=== PATIENT | female | born 1985 | race Caucasian/White ===

== ENCOUNTER 2016-08-07 23:40 | Emergency (ER) | payer SELFPAY ==
--- NOTE | 2016-08-07 23:48 | EDPHY ---
H & P HPI/ROS: HPI CHIEF COMPLAINT: Shortness of breath HISTORY OF PRESENT ILLNESS: This patient very pleasant 22-year-old female significant past medical history for thyroid disease, presents to the emergency room by EMS after she was sitting down eating dinner with her and having spicy soup and tortilla. She tells me they are very hot peppers in the spicy soup and all the sudden she had an episode of reflux with this burning discomfort all the way from her epigastric up into her posterior pharynx and up into her no she felt an intense burning sensation. She tells me felt like severe reflux it then resolved however she feels like she still having trouble swallowing. She denies chest pain or shortness of breath. She states it feels like her throat is inflamed. Denies wheezing, cough, vomiting, trouble swallowing but does have pain. Past Medical History: Thyroid disease Past Surgical History: Gallbladder removal Social History: Denies daily use of drugs alcohol tobacco products Family History: Noncontributory ROS REVIEW OF SYSTEMS: A comprehensive 10 point review of systems is otherwise negative aside from elements mentioned in the history of present illness. Exam Constitutional triage nursing summary reviewed, vital signs reviewed, awake/ alert. Eyes normal conjunctivae and sclera, EOMI, PERRLA. HENT posterior pharynx is normal on exam, no stridor, normal inspection, atraumatic, moist mucus membranes, no epistaxis, neck supple/ no meningismus, no raccoon eyes. Respiratory clear to auscultation bilaterally, normal breath sounds, no respiratory distress, no wheezing. Cardiovascular rate normal, regular rhythm, no murmur, no edema, distal pulses normal. Gastrointestinal soft, non-tender, no rebound, no guarding, normal bowel sounds, no distension, no pulsatile mass. Genitourinary no CVA tenderness. Musculoskeletal no midline vertebral tenderness, full range of motion, no calf swelling, no tenderness of extremities, no meningismus, good pulses, neurovascularly intact. Skin pink, warm, & dry, no rash, skin atraumatic. Neurologic awake, alert and oriented x 3, AAOx3, moves all 4 extremities equally, motor intact, sensory intact, CN II-XII intact, normal cerebellar, normal vision, normal speech. Psychiatric normal mood/affect. Heme/Lymph/Immune no lymphadenopathy. Differential Diagnosis: Includes but is not limited to in a particular order: GERD, esophageal spasm, esophagitis, pain after reflux, reactive inflammation of burn Medical Decision Making: Patient be given a GI cocktail and Pepcid to see if this improves her symptoms. Re-evaluation: 0256: re-examination at this time this patient is resting comfortably. She feels much better after GI cocktail and Pepcid. She tells me the burning sensation in her throat and esophagus has resolved. She is requesting discharge. She understands if she develops any worsening symptoms includes chest pain, shortness of breath trouble swallowing trouble breathing to return emergency room. I will place her on Zantac for 2 weeks. Return if any worsening symptoms she understands. Source: Patient, EMS - Personal History Tetanus Vaccine Date: 2010 Constitutional: Initial Vital Signs Temperature (C) 36.7 C 08/07/16 23:45 Heart Rate 102 H 08/07/16 23:45 Respiratory Rate 20 08/07/16 23:45 Blood Pressure 138/91 H 08/07/16 23:45 O2 Sat (%) 97 08/07/16 23:45 O2 Delivery Mode Room Air Allergies/Adverse Reactions: No Known Allergies Allergy (Unverified 09/20/09 04:39) Home Medications: Medication Instructions Recorded Hydrocodone Bit/Acetaminophen 1 tab PO Q6 PRN 02/16/12 [Vicodin 5/500] Levothyroxine [Synthroid 175 mcg 175 mcg PO DAILY06 02/16/12 (RX)] Nitrofurantoin Macrocrystal 100 mg PO Q6 02/16/12 [Macrodantin 100 mg (RX)] Pharmacy Completed 02/16/12 02/16/12 Ranitidine HCl [Zantac] 150 mg PO DAILY #14 tablet 08/08/16 Medical Decision Making - Data Points Medications Given: Discontinued Medications Famotidine (Pepcid) 20 mg IVP EDNOW ONE Stop: 08/07/16 23:57 Last Admin: 08/08/16 00:03 Dose: 20 mg Miscellaneous Medication (Gi Cocktail) 55 ml PO EDNOW ONE Stop: 08/07/16 23:57 Last Admin: 08/07/16 23:59 Dose: 55 ml Departure - Departure Disposition: Home, Routine, Self-Care Clinical Impression: GERD (gastroesophageal reflux disease) Qualifiers: Esophagitis presence: with esophagitis Qualified Code(s): K21.0 - Gastro- esophageal reflux disease with esophagitis Condition: Good Instructions: Esophageal Spasm (ED), Gastroesophageal Reflux Disease (ED) Additional Instructions: 1. stay well-hydrated drink lots of fluids. 2. do not ingest spicy fatty greasy foods. 3. take Zantac for 2 weeks. 4.Return emergency room if you have worsening symptoms questions or concerns. Referrals: Patient,NotPresent [Unknown] - As per Instructions Prescriptions: Ranitidine HCl [Zantac] 150 mg PO DAILY #14 tablet
[2016-08-07 23:49] VITALS: TEMP 98.1
[2016-08-07] MEDS ORDERED: MAALOX/LIDO/HYOSC GI COCKTAIL 55 ML BOTTLE ONE (23:56)
[2016-08-07] MEDS ORDERED: MAALOX/LIDO/HYOSC GI COCKTAIL 55 ML BOTTLE PO ONE (23:56)
[2016-08-07] MEDS ORDERED: FAMOTIDINE 20 MG/2 ML SDV IVP ONE (23:56)
[2016-08-08 03:08] VITALS: BP 114/74; PULSE 743; RESP 16; O2SAT 95
== END 2016-08-08 03:07 | disposition home or self-care (01) ==
LOC: EDUNIT#
DX: K21.0 Gastro-esophageal reflux disease with esophagitis (principal)
CPT/HCPCS: 96374

== ENCOUNTER 2016-08-08 21:09 | Emergency (ER) | payer SELFPAY ==
[2016-08-08 21:32] VITALS: RESP 18
--- NOTE | 2016-08-08 22:00 | EDPHY ---
H & P Stated Complaint: feels like something in throat and sinus HPI/ROS: HPI CHIEF COMPLAINT: Chest pain, throat pain, shortness of breath HISTORY OF PRESENT ILLNESS: This patient very pleasant 30-year-old female who I saw last night in the emergency room for reflux type symptoms burning in her throat and chest up to her nose. Patient felt better the last night after a GI cocktail, she presents back to the emergency room tonight stating that now she has discomfort in her chest hurts when she takes a deep breath in it also hurts over her sternum when you press there. No trauma. She also tells me that she feels like there is a sensation of something stuck in her throat. She denies nausea, vomiting, hemoptysis, no history of DVT or PE. The pain does not radiate anywhere. She describes the pain as sharp when she takes a deep breath in, also describes the pain as sharp any press on her anterior chest wall. She states also she feels like something stuck in her throat. Denies choking, trouble swallowing, fever, drooling, neck pain or headache. Past Medical History: Thyroid disease Past Surgical History: Gallbladder removal Social History: denies daily use of drugs alcohol tobacco products Family History: Noncontributory ROS REVIEW OF SYSTEMS: A comprehensive 10 point review of systems is otherwise negative aside from elements mentioned in the history of present illness. Exam Constitutional triage nursing summary reviewed, vital signs reviewed, awake/ alert. Eyes normal conjunctivae and sclera, EOMI, PERRLA. HENT normal inspection, atraumatic, moist mucus membranes, no epistaxis, neck supple/ no meningismus, no raccoon eyes. Respiratory clear to auscultation bilaterally, normal breath sounds, no respiratory distress, no wheezing. Cardiovascular chest wall: tender palpation over the sternum, rate normal, regular rhythm, no murmur, no edema, distal pulses normal. Gastrointestinal soft, non-tender, no rebound, no guarding, normal bowel sounds, no distension, no pulsatile mass. Genitourinary no CVA tenderness. Musculoskeletal no midline vertebral tenderness, full range of motion, no calf swelling, no tenderness of extremities, no meningismus, good pulses, neurovascularly intact. Skin pink, warm, & dry, no rash, skin atraumatic. Neurologic awake, alert and oriented x 3, AAOx3, moves all 4 extremities equally, motor intact, sensory intact, CN II-XII intact, normal cerebellar, normal vision, normal speech. Psychiatric normal mood/affect. Heme/Lymph/Immune no lymphadenopathy. Differential diagnosis includes but is not limited to: pulmonary embolism, pneumonia, pleurisy, pneumothorax, musculoskeletal chest wall pain ACS, atypical chest pain, pneumothorax, pneumonia, aortic dissection, congestive heart failure, tumor, musculoskeletal pain, esophageal pain, GERD, peptic ulcer disease, pancreatitis Medical Decision Making: Plan for this patient had an IV established obtain blood work, patient will need an x-ray, EKG, D-dimer and dehydrated. Will try IV Toradol for pain control. We will also perform a x-ray of the neck soft tissue to the prevertebral space. Re-evaluation: EKG interpretation by me on record in [employer] system. Impression time of EKG 2212, this is sinus rhythm rate of 61, there is border will lying Q-wave abnormality in lead to 3 AVF otherwise no acute ischemic changes specifically no ST elevation, ST depression, T-wave abnormalities. No prolonged intervals. ED x-ray chest two view; this shows airway disease. ED x-ray neck soft tissue: negative for foreign body or significant abnormality specifically no prevertebral soft tissue swelling. 1257: re-examination patient is resting comfortably no acute distress. Vital signs reviewed no hypoxia no respiratory distress. Blood work and x-ray has been reviewed an EKG. No acute ischemia change, negative troponin negative D- dimer. Chest shows airway disease I will place her on albuterol inhaler. I do recommend she continue her Zantac as previously prescribed. And return to the ER she develops any worsening symptoms. Also GI referral for possible severe GERD. Patient understands return emergency room if she develops any worsening symptoms includes chest pain, shortness of breath, vomiting, fever. Source: Patient - Personal History LMP (Females 10-55): Now Current Tetanus/Diphtheria Vaccine: Yes Current Tetanus Diphtheria and Acellular Pertussis (TDAP): Yes Tetanus Vaccine Date: 2010 - Medical/Surgical History Hx Asthma: No Hx Chronic Respiratory Disease: No Hx Diabetes: No Hx Cardiac Disease: No Hx Renal Disease: No Hx Cirrhosis: No Hx Alcoholism: No Hx HIV/AIDS: No Hx Splenectomy or Spleen Trauma: No Other PMH: Hyperthyroidism - Social History Smoking Status: Never smoked Constitutional: Initial Vital Signs Temperature (C) 36.7 C 03/09/17 21:27 Heart Rate 69 08/08/16 21:27 Respiratory Rate 18 08/08/16 21:27 Blood Pressure 123/74 H 08/08/16 21:27 O2 Sat (%) 95 08/08/16 21:27 O2 Delivery Mode Room Air Allergies/Adverse Reactions: No Known Allergies Allergy (Unverified 09/20/09 04:39) Home Medications: Medication Instructions Recorded Levothyroxine [Synthroid 175 mcg 175 mcg PO DAILY06 02/16/12 (RX)] Ranitidine HCl [Zantac] 150 mg PO DAILY #14 tablet 08/08/16 Albuterol [Proventil Inhaler HFA 1 - 2 puffs IH Q4H #1 mdi 08/09/16 (*)] Medical Decision Making - Data Points Laboratory Results: Laboratory Results 08/08/16 22:43 08/08/16 22:43 08/08/16 08/08/16 08/08/16 22:43 22:43 22:43 WBC RBC Hgb Hct MCV MCH MCHC RDW Plt Count MPV Neut % (Auto) Lymph % (Auto) [place] % (Auto) Eos % (Auto) Baso % (Auto) Nucleat RBC Rel Count Absolute Neuts (auto) Absolute Lymphs (auto) Absolute Monos (auto) Absolute Eos (auto) Absolute Basos (auto) Absolute Nucleated RBC Immature Gran % Immature Gran # PT 14.0 SEC SEC (12.0-15.0) INR 1.09 (0.83-1.16) APTT 28.8 SEC SEC (23.0-38.0) D-Dimer < 0.27 ug/mLFEU ug/mLFEU (0.00-0.50) Sodium 139 mEq/L mEq/L (134-144) Potassium 3.7 mEq/L mEq/L (3.5-5.2) Chloride 103 mEq/L mEq/L (97-110) Carbon Dioxide 22 mEq/l mEq/l (22-31) Anion Gap 14 mEq/L mEq/L (8-16) BUN 10 mg/dL mg/dL (7-23) Creatinine 0.7 mg/dL mg/dL (0.6-1.0) Estimated GFR > 60 Glucose 85 mg/dL mg/dL (70-100) Calcium 9.4 mg/dL mg/dL (8.5-10.4) Total Bilirubin 0.7 mg/dL mg/dL (0.1-1.4) Conjugated Bilirubin 0.6 mg/dL H mg/dL (0.0-0.5) Unconjugated Bilirubin 0.1 mg/dL mg/dL (0.0-1.1) AST 31 IU/L IU/L (14-46) ALT 42 IU/L IU/L (9-52) Alkaline Phosphatase 82 IU/L IU/L (38-126) Troponin I < 0.012 ng/mL ng/mL (0-0.034) NT-Pro-B Natriuret Pep 21 pg/mL pg/mL (0-125) Total Protein 7.3 g/dL g/dL (6.3-8.2) Albumin 4.2 g/dL g/dL (3.5-5.0) Beta HCG, Qual NEGATIVE 08/08/16 22:43 WBC 9.19 10^3/uL 10^3/uL (3.80-9.50) RBC 4.53 10^6/uL 10^6/uL (4.18-5.33) Hgb 12.9 g/dL g/dL (12.6-16.3) Hct 38.9 % % (38.0-47.0) MCV 85.9 fL fL (81.5-99.8) MCH 28.5 pg pg (27.9-34.1) MCHC 33.2 g/dL g/dL (32.4-36.7) RDW 14.3 % % (11.5-15.2) Plt Count 295 10^3/uL 10^3/uL (150-400) MPV 11.3 fL fL (8.7-11.7) Neut % (Auto) 63.6 % % (39.3-74.2) Lymph % (Auto) 30.5 % % (15.0-45.0) [place] % (Auto) 5.1 % % (4.5-13.0) Eos % (Auto) 0.3 % L % (0.6-7.6) Baso % (Auto) 0.3 % % (0.3-1.7) Nucleat RBC Rel Count 0.0 % % (0.0-0.2) Absolute Neuts (auto) 5.84 10^3/uL 10^3/uL (1.70-6.50) Absolute Lymphs (auto) 2.80 10^3/uL 10^3/uL (1.00-3.00) Absolute Monos (auto) 0.47 10^3/uL 10^3/uL (0.30-0.80) Absolute Eos (auto) 0.03 10^3/uL 10^3/uL (0.03-0.40) Absolute Basos (auto) 0.03 10^3/uL 10^3/uL (0.02-0.10) Absolute Nucleated RBC 0.00 10^3/uL 10^3/uL (0-0.01) Immature Gran % 0.2 % % (0.0-1.1) Immature Gran # 0.02 10^3/uL 10^3/uL (0.00-0.10) PT INR APTT D-Dimer Sodium Potassium Chloride Carbon Dioxide Anion Gap BUN Creatinine Estimated GFR Glucose Calcium Total Bilirubin Conjugated Bilirubin Unconjugated Bilirubin AST ALT Alkaline Phosphatase Troponin I NT-Pro-B Natriuret Pep Total Protein Albumin Beta HCG, Qual Medications Given: Discontinued Medications Albuterol/Ipratropium (Duoneb) 3 ml IH EDNOW ONE Stop: 08/08/16 23:23 Last Admin: 08/08/16 23:35 Dose: 3 ml Famotidine (Pepcid) 20 mg IVP EDNOW ONE Stop: 08/08/16 23:23 Last Admin: 08/08/16 23:35 Dose: 20 mg Sodium Chloride (Ns) 1,000 mls @ 0 mls/hr IV ONCE ONE PRN Reason: Wide Open Stop: 08/08/16 22:05 Last Admin: 08/08/16 22:43 Dose: 1,000 mls Ketorolac Tromethamine (Toradol) 30 mg IVP EDNOW ONE Stop: 08/08/16 22:06 Last Admin: 08/08/16 22:46 Dose: 30 mg Miscellaneous Medication (Gi Cocktail) 55 ml PO EDNOW ONE Stop: 08/08/16 23:23 Last Admin: 08/08/16 23:34 Dose: 55 ml Departure - Departure Disposition: Home, Routine, Self-Care Clinical Impression: Acute bronchitis Qualifiers: Bronchitis organism: unspecified organism Qualified Code(s): J20.9 - Acute bronchitis, unspecified GERD (gastroesophageal reflux disease) Qualifiers: Esophagitis presence: with esophagitis Qualified Code(s): K21.0 - Gastro- esophageal reflux disease with esophagitis Condition: Good Instructions: Gastroesophageal Reflux Disease (ED), Acute Bronchitis (ED) Additional Instructions: 1. Drink lots of fluids stay well-hydrated. 2. take her Zantac as previously prescribed 3. Use her albuterol inhaler as needed for cough shortness of breath. 4. return immediately to the emergency room if develops worsening symptoms questions or concerns. Referrals: Summer Mckee [Primary Care Provider] - As per Instructions Prescriptions: Albuterol [Proventil Inhaler HFA (*)] 1 - 2 puffs IH Q4H #1 mdi
[2016-08-08] MEDS ORDERED: NS 1,000 ML IV ONE (22:04)
[2016-08-08] MEDS ORDERED: KETOROLAC 30 MG/1 ML SDV IVP ONE (22:05)
--- NOTE | 2016-08-08 22:16 | CPEKG ---
Heart Rate: 61 RR Interval: 984 P-R Interval: 144 QRSD Interval: 90 QT Interval: 424 QTC Interval: 427 P [place]: 31 QRS [place]: 69 T Wave [place]: 18 EKG Severity - BORDERLINE ECG - EKG Impression: SINUS RHYTHM EKG Impression: BORDERLINE Q WAVES IN INFERIOR LEADS Electronically Signed By: Jennifer Valladares 09-Aug-2016 10:33:04
[2016-08-08 22:57] LABS: INR 1.09 (0.83-1.16)
[2016-08-08 22:58] LABS: ALANINE AMINOTRANSFERASE 42 IU/L (9-52); ALBUMIN 4.2 g/dL (3.5-5.0); ALKALINE PHOSPHATASE 82 IU/L (38-126); ANION GAP 14 mEq/L (8-16); APTT 28.8 SEC (23.0-38.0); ASPARTATE AMINOTRANSFERASE 31 IU/L (14-46); BILIRUBIN,TOTAL 0.7 mg/dL (0.1-1.4); BILIRUBIN-CONJUGATED 0.6 mg/dL (0.0-0.5); BILIRUBIN-UNCONJUGATED 0.1 mg/dL (0.0-1.1); CALCIUM 9.4 mg/dL (8.5-10.4); CARBON DIOXIDE 22 mEq/l (22-31); CHLORIDE 103 mEq/L (97-110); CREATININE 0.7 mg/dL (0.6-1.0); GLOMERULAR FILTRATION RATE > 60; GLUCOSE 85 mg/dL (70-100); POTASSIUM 3.7 mEq/L (3.5-5.2); SODIUM 139 mEq/L (134-144); TOTAL PROTEIN 7.3 g/dL (6.3-8.2)
[2016-08-08 23:10] LABS: TROPONIN I < 0.012 ng/mL (0-0.034)
[2016-08-08 23:15] LABS: % IMMATURE GRANULYOCYTES 0.2 % (0.0-1.1); ABSOLUTE IMMATURE GRANULOCYTES 0.02 10^3/uL (0.00-0.10); ADD DIFF? NO; ADD MORPH? NO; ADD SCAN? NO; ATYPICAL LYMPHOCYTE FLAG 0 (0-99); FRAGMENT RBC FLAG 20 (0-99); HEMATOCRIT 38.9 % (38.0-47.0); HEMOGLOBIN 12.9 g/dL (12.6-16.3); LEFT SHIFT FLG 0 (0-99); LIPEMIA HEMOLYSIS FLAG 80 (0-99); MEAN CELL HEMOGLOBIN 28.5 pg (27.9-34.1); MEAN CELL HEMOGLOBIN CONCENTR. 33.2 g/dL (32.4-36.7); MEAN CELL VOLUME 85.9 fL (81.5-99.8); MEAN PLATELET VOLUME 11.3 fL (8.7-11.7); PLATELET CLUMPS FLAG 10 (0-99); PLATELET COUNT 295 10^3/uL (150-400); RED BLOOD CELL COUNT 4.53 10^6/uL (4.18-5.33); RED CELL DISTRIBUTION WIDTH 14.3 % (11.5-15.2)
[2016-08-08] MEDS ORDERED: IPRATROPIUM/ALBUTEROL 3 ML DEYVIAL IH ONE (23:22)
[2016-08-08] MEDS ORDERED: FAMOTIDINE 20 MG/2 ML SDV IVP ONE (23:22)
[2016-08-08] MEDS ORDERED: MAALOX/LIDO/HYOSC GI COCKTAIL 55 ML BOTTLE PO ONE (23:22)
[2016-08-09 01:14] VITALS: BP 115/72; PULSE 60; TEMP 97.7; O2SAT 93
== END 2016-08-09 01:13 | disposition home or self-care (01) ==
DX: J20.9 Acute bronchitis, unspecified (principal); K21.0 Gastro-esophageal reflux disease with esophagitis
CPT/HCPCS: J1885

== ENCOUNTER 2016-09-10 19:50 | Emergency (ER) | payer SELFPAY ==
--- NOTE | 2016-09-10 20:47 | EDPHY ---
H & P Stated Complaint: dry throat, unable to swallow saliva, chest pressure Time Seen by Provider: 09/10/16 20:46 HPI/ROS: CHIEF COMPLAINT: Dry mouth, globus pallidus HISTORY OF PRESENT ILLNESS: The patient presents to the ED with complaints of dry mouth and a sensation difficult swallowing with some upper esophageal discomfort. The patient was seen in the ED 1 month ago with similar symptoms. She had a GI cocktail which resulted in complete resolution of her symptoms. She was instructed to use a antacid at the time of that ED visit. The patient has been using [id number] Tums occasionally. The patient denies fever, cough or congestion. She presents to the ED tonight with recurrent symptoms similar to her presentation 1 month ago. The patient denies additional acute complaints. She has no complaints of pleuritic chest pain, asymmetric calf pain or swelling, fever or abdominal pain. REVIEW OF SYSTEMS: A comprehensive 10 point review of systems is otherwise negative aside from elements mentioned in the history of present illness. Source: Patient Exam Limitations: No limitations - Personal History LMP (Females 10-55): 8-14 Days Ago Tetanus Vaccine Date: 2010 - Medical/Surgical History Hx Asthma: No Hx Chronic Respiratory Disease: No Hx Diabetes: No Hx Cardiac Disease: No Hx Renal Disease: No Hx Cirrhosis: No Hx Alcoholism: No Hx HIV/AIDS: No Hx Splenectomy or Spleen Trauma: No Other PMH: Hyperthyroidism, GERD - Social History Smoking Status: Never smoked - Physical Exam Exam: General Appearance: Alert, no distress Eyes: Pupils equal and round no pallor or injection ENT, Mouth: Mucous membranes moist, no or pharyngeal erythema, no mass, no swelling Respiratory: There are no retractions, lungs are clear to auscultation Cardiovascular: Regular rate and rhythm Gastrointestinal: Abdomen is soft and nontender, no masses, bowel sounds normal Neurological: A&O, normal motor function, normal sensory exam, normal cranial nerves Skin: Warm and dry, no rashes Musculoskeletal: Neck is supple nontender Extremities: symmetrical, full range of motion Constitutional: Initial Vital Signs Temperature (C) 36.4 C 09/10/16 19:57 Heart Rate 76 09/10/16 19:57 Respiratory Rate 20 09/10/16 19:57 Blood Pressure 122/80 H 09/10/16 19:57 O2 Sat (%) 99 09/10/16 19:57 O2 Delivery Mode Room Air Allergies/Adverse Reactions: No Known Allergies Allergy (Unverified 09/10/16 19:55) Home Medications: Medication Instructions Recorded Levothyroxine [Synthroid 175 mcg 175 mcg PO DAILY06 02/16/12 (RX)] Ranitidine HCl [Zantac] 150 mg PO DAILY #14 tablet 08/08/16 Albuterol [Proventil Inhaler HFA 1 - 2 puffs IH Q4H #1 mdi 08/09/16 (*)] Medical Decision Making ED Course/Re-evaluation: Reviewed the patient's workup from 1 month ago. She had an unremarkable x-ray of her neck, the patient had a negative D-dimer, she had unremarkable laboratory studies. The patient did feel better after receiving a GI cocktail. The patient presents to the ED with some upper esophageal irritation. It is either secondary to reflux or potentially anxiety. At this time I do feel the patient can be discharged home with instructions to take ranitidine as needed. She can also use Maalox. She can follow up with her primary care provider at clinic on next . Differential Diagnosis: Differential diagnosis considered includes pharyngitis, esophagitis, gastroesophageal reflux, anxiety Departure - Departure Disposition: Home, Routine, Self-Care Clinical Impression: Dyspepsia Condition: Good Instructions: Indigestion (ED) Additional Instructions: 1. Use Maalox as needed for relief of your symptoms. 2. Please take Zantac which is available [id number] twice daily. 3. Please return to the emergency department for markedly worsening symptoms or other concerns. Referrals: Summer Mckee [Primary Care Provider] - As per Instructions
[2016-09-10 21:00] VITALS: BP 105/64; PULSE 65; RESP 16; TEMP 98.2; O2SAT 97
[2016-09-10] MEDS ORDERED: MAG HYDROX/AL HYDROX/SIMETH 30 ML UDCUP PO ONE (21:18)
[2016-09-10] MEDS ORDERED: LIDOCAINE 2% VISCOUS 15 ML UDCUP PO ONE (21:18)
[2016-09-10] MEDS ORDERED: HYOSCYAMINE SULFATE 0.125 MG TAB PO ONE (21:18)
== END 2016-09-10 21:43 | disposition home or self-care (01) ==
DX: R10.13 Epigastric pain (principal)